=== PATIENT | female | born 1965 | race Caucasian/White ===

== ENCOUNTER 2017-02-07 16:25 | Emergency (ER) | payer OTHER ==
[~2017-02-07] VITALS: Ht 162.6 cm; Wt 81.8 kg
[~2017-02-07 16:25] MED LIST: ASPI81TA3 PO; INSLIS SUBQ; INSU100V7 SUBQ; LEVO100T6 PO; METF500T4 PO; SIMV40TA5 PO
[2017-02-07 16:31] VITALS: BP 156/84; PULSE 86; RESP 18; O2SAT 98
[2017-02-07] MEDS ORDERED: 0.9% Sodium Chloride 1,000 ML IV ONE (16:49)
--- NOTE | 2017-02-07 16:54 | ED.REPORT ---
HPI-Abd Pain F 40 and Over Date of Service Feb 07, 2017 ED Provider: Nahomi Jordan MD Pt is a 51 year old female with a hx of DM presenting to the ED from complaining of sudden onset constant/ waxing and waning left flank pain, hematuria, and diaphoresis onset at 1030 this morning. Pt denies any previous similar symptoms. She reports that her blood sugar was 325 so she took 100 of Lantus which she takes daily. Denies fever, chills, nausea, vomiting, SOB or wheezing. Nursing Notes Stated Complaint: LEFT FLANK PAIN Chief Complaint: Female Abdominal Pain Nursing Notes Reviewed: Yes Allergies: Coded Allergies: hydrocodone (Verified Allergy, Intermediate, Nausea,Vomiting, 02/07/17) latex (Verified Allergy, Mild, Rash, 02/07/17) Scheduled Aspirin Chew (Aspirin Chew) 81 Mg Chew 81 MG PO DAILY Ciprofloxacin (Ciprofloxacin) 500 Mg Tablet 500 MG PO BID Insulin Glargine (Lantus U100 Insulin Vial) 100 Unit/Ml Vial 100 UNIT SUBQ DAILY Levothyroxine (Levothyroxine) 100 Mcg Tablet 100 MCG PO DAILY Metformin (Metformin) 500 Mg Tablet 1,000 MG PO DAILY Simvastatin (Simvastatin) 40 Mg Tablet 40 MG PO HS Tamsulosin (Flomax) 0.4 Mg Capsule 0.4 MG PO DAILY Scheduled PRN Ondansetron ODT (Zofran ODT) 4 Mg Tablet 4 MG PO Q4H PRN PRN For Nausea oxyCODONE-Acetaminophen 5-325 mg (oxyCODONE-Acetaminophen 5-325 mg) 1 Each Tablet 1-2 TAB PO Q6H PRN PRN For Pain Miscellaneous Medications Insulin Human Lispro (HumaLOG U100 Insulin Vial) 100 Unit/Ml Unit 0 SUBQ Check blood sugars before meals and at bedtime. Use correction factor only before meals. Blood Sugar Lispro Correction: <151, 0 units; 151-175, 1 unit; 176-200, 2 units; 201-225, 3 units; 226-250, 4 units; 251-275, 5 units; 276-300 , 6 units; 301-325, 7 units; 326-350, 8 units; 351-375, 9 units; 376-400, 10 units; >400, 12 units. General Time Seen by MD: 16:38 Chief Complaint Flank pain left Hx Obtained From: Patient Arrived By: Walk-in Sudden in Onset?: Yes Onset Occurred: 5 - 8 hours ago Symptom Duration: Since onset Progression since Onset: Waxes and wanes Location: : Flank left Quality: Painful Severity: Current: Moderate Severity: Maximum: Severe Recent Healthcare: No recent hospitalization, Recent doctor visit Similar Sx Previous: No Past Medical History Past Medical History Reports: Diabetes mellitus Past Surgical History denies Smoking History Never Smoker Ambulatory Status Independent Review of Systems Constitutional: Denies: Chills, Fever Respiratory: Denies: Shortness of breath, Wheezing GI: Denies: Nausea, Vomiting Female: Reports: Flank pain, Hematuria Complete sys rev & neg: except as marked. Skin: Reports Diaphoresis Physical Exam Vital Signs Vital Signs (First) Date Time Temp Pulse Resp B/P Pulse Ox O2 Delivery O2 Flow Rate FiO2 02/07/17 16:31 36.4 86 18 156/84 98 Room Air Initial VS: Reviewed Head / Eyes: Atraumatic, Normocephalic, PERRL ENT: Mucous membranes moist, Conjunctiva normal, No scleral icterus Extremities: Vascular intact, Neuro intact, No swelling, No tenderness Skin: Warm, Dry, No cyanosis Neurologic: Alert, Oriented, Nonfocal Psychiatric: Mood/affect normal, Behavior normal, Normal thought content General/Constitutional: Awake, Alert Appears in pain Respiratory / Chest: Breath sounds NL, Breath sounds = bilat, No respiratory distress, No rales, No rhonchi, No wheezing, No stridor Cardiovascular: Heart rate NL, Regular rhythm, Heart sounds NL, Peripheral circulation NL Abdomen: Atraumatic, Soft, Non-tender Back: Atraumatic Left CVA tenderness Interpretation & Diagnostics Lab Results Interpretation Result Diagram: 02/07/17 1645 02/07/17 1645 Test 02/07/17 16:45 02/07/17 17:31 02/07/17 18:07 White Blood Count 18.9th/mm3 (3.8-10.1) Red Blood Count 4.65mil/mm3 (3.90-5.20) Hemoglobin 14.6g/dL (12.0-15.6) Hematocrit 41.3% (35.0-46.0) Mean Corpuscular Volume 88.8fL (81-100) Mean Corpuscular Hemoglobin 31.4pg (27.0-35.0) Mean Corpuscular Hemoglobin Concent 35.4% (32.0-37.0) Red Cell Distribution Width 12.4% (12.3-15.4) Platelet Count 334bil/L (150-400) Neutrophils (%) (Auto) 74.1% (40-74) Lymphocytes (%) (Auto) 18.3% (14-46) Monocytes (%) (Auto) 5.9% (4-12) Eosinophils (%) (Auto) 1.0% (0-5) Basophils (%) (Auto) 0.4% (0-3) Sodium Level 134mEq/L (134-144) Potassium Level 3.9mEq/L (3.5-5.2) Chloride Level 96mEq/L (97-108) Carbon Dioxide Level 21mmol/L (18-29) Blood Urea Nitrogen 14mg/dL (6-24) Creatinine 0.76mg/dL (0.57-1.00) Estimat Glomerular Filtration Rate 114mL/min (>59) Glucose Level 159mg/dL (60-99) Calcium Level 9.7mg/dL (8.5-10.1) Total Bilirubin 0.4mg/dL (0.0-1.2) Aspartate Amino Transf (AST/SGOT) 23U/L (0-50) Alanine Aminotransferase (ALT/SGPT) 26U/L (0-32) Alkaline Phosphatase 85U/L (25-150) Total Protein 8.1g/dL (6.4-8.4) Albumin 4.6g/dL (3.4-5.0) Hold [place] Top Tube Received (Received) Urine Color Bloody (YELLOW) Urine Appearance Turbid (CLEAR,HAZY) Urine pH 5.0 (5.0-8.0) Urine Specific [place] 1.032 (1.003-1.035) Urine Protein 100mg/dL (NEG,TRACE) Urine Glucose (UA) 250mg/dL (NEGATIVE) Urine Ketones Tracemg/dL (NEGATIVE) Urine Occult Blood Large (NEGATIVE) Urine Nitrite Negative (NEGATIVE) Urine Bilirubin Negative (NEGATIVE) Urine Urobilinogen Normalmg/dL (NORMAL) Urine Leukocyte Esterase Negative (NEGATIVE) Urine RBC >50/hpf (0-2) Urine WBC 6-10/hpf (0-5) Urine Epithelial Cells Occasional/hpf (NONE-MOD) Urine Crystals None seen (NONE SEEN) Urine Bacteria Few/hpf (NONE-FEW) Urine Hyaline Casts None/lpf (NONE) Urine Granular Casts None seen (NONE SEEN) Urine Waxy Casts None seen (NONE SEEN) Urine Red Blood Cell Casts None seen (NONE SEEN) Urine White Blood Cell Casts None seen (NONE SEEN) Urine Mucus None seen (None Seen) Urine Trichomonas None seen (NONE SEEN) Urine Yeast None (NONE SEEN) Urinalysis Comment None Urine Culture Reflexed Indicated CT Abd / Pelvis Interpretation CT KUB: IMPRESSION: 1. 3 mm left UVJ stone causing moderate left-sided hydroureteronephrosis. 2. Bilateral nonobstructing renal cortical stones. 3. Colonic diverticulosis without evidence diverticulitis. 4. Hepatic steatosis. Dictated by: Susannah Adrian MD, PhD on 02/07/2017 at 17:09 Study type: Abdominal CT no contrast Interpretation / Wet Read by: Interpret - Radiologist Re-Eval/Medical Decision Med Decision/Clinical Course 51-year-old female presents the emergency department with flank pain. Found to have a 3 mm UVJ stone with moderate hydronephrosis. Given that she does have some signs of infection with white blood cells in her urine and some dysuria yesterday and elevated white blood cell count discussed patient's case with urology on-call, will see patient in clinic on Thursday recommended Flomax, antibiotic and urine culture. 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 Re-Evaluation/Progress #1: Time of Eval: 17:47 Patient Status: Condition improved Re-Evaluation/Progress Note: Informed the pt of her CT results and discussed plan for discharge. Re-Evaluation/Progress #2: Time of Eval: 19:30 Re-Evaluation/Progress Note: Pt feels improved in terms of pain, nausea and vomiting. She does endorse that she felt some frequency and urgency started this morning. No dysuria. Re-Evaluation/Progress #3: Time of Eval: 20:29 Patient Status: Condition improved Re-Evaluation/Progress Note: Pt continues to have good control of her pain and nausea. Discussed plan for discharge. Pt understands and agrees. Consultation : Referral / Consult Name: Guera Lin MD Consulted With: Urology Call Returned at: 20:17 Note: Asks for urine culture, abx, Flomax, and call the clinic on Thursday. Counseled Regarding: Diagnosis, Lab results, Need for follow-up, When/why to return to ED Discharge & Departure Primary Impression: Renal calculus Additional Impression: Hydronephrosis Hydronephrosis type: unspecified Qualified Code: N13.30 - Unspecified hydronephrosis Disposition: Home Discharge Condition All VS Reviewed: Yes Condition: Improved Patient Instructions: Kidney Stones (ED) Additional Instructions: Your CT scan showed that you have a 3 mm kidney stone on the left. This should pass on its own. Dr. Lin recommends that you start taking antibiotics and Flomax, and follow up in the clinic on Thursday. you can take ibuprofen and percocet for pain. Return to the ER for fever, vomiting, increased pain, or other signs of infection. Referrals: Doug Song PA-C (PCP) Guera Lin MD Attestation Portions of this note were transcribed by Kristan Chamberlain. I, Dr. Jordan personally performed the history, physical exam and medical decision-making; I reviewed and confirmed the accuracy of the information in the transcribed note. Signed by: Misti Masters, 02/07/2017. copies to: Doug Song PA-C; Guera Lin MD, Sarah C MD Feb 07, 2017 16:54 KRISTAN CHAMBERLAIN Feb 07, 2017 16:59
[2017-02-07] MEDS ORDERED: Ondansetron 2 mg/mL 2 mL Inj ONE (17:01)
[2017-02-07] MEDS ORDERED: Ondansetron 2 mg/mL 2 mL Inj IVPUSH ONE (17:05)
[2017-02-07 17:12] LABS: BASOPHILS % (AUTO) 0.4 % (0-3); MONOCYTES % (AUTO) 5.9 % (4-12); Mean Corpuscular Hemoglobin 31.4 pg (27.0-35.0); Mean Corpuscular Volume 88.8 fL (81-100); NEUTROPHILS % (AUTO) 74.1 % (40-74); Platelet Count 334 bil/L (150-400)
--- NOTE | 2017-02-07 17:15 | DRSVH ---
PROCEDURE: CT KUB ([id number]) INDICATIONS: left flank pain TECHNIQUE: Noncontrast 5 mm thick sections acquired from the diaphragms to the symphysis. 5 mm thick coronal an d sagittal reformats were then performed. For radiation dose reduction, the following was used: aut omated exposure control, adjustment of mA and/or kV according to patient size. COMPARISON: None. FINDINGS: Image quality: Excellent. Lung bases: Lung bases are clear. Heart size is normal. Urinary system: Both kidneys are normal in size. 3 mm stone is noted in the left UVJ causing modera te left-sided hydroureteronephrosis. Cluster of stones is noted in the inferior pole of the left kid rema with largest stone measuring 6 mm in diameter. There is a 3 mm in diameter stone adjacent to the largest stone. 2 small proximally 1 mm in diameter stones are noted in the inferior pole of the lef t kidney And millimeter nonobstructing stone noted in the right kidney. No right-sided hydronephrosis. Bladd er wall thickness is normal; no calcified bladder stones. Other solid organs: Liver and spleen are normal in size. Diffuse fatty infiltration of the liver. Ga llbladder is within normal limits. Pancreas is normal in contours. No adrenal nodules. Peritoneum and bowel: Unenhanced bowel loops demonstrate normal wall thickness and caliber. Scattere d diverticuli noted in the colon without evidence of diverticulitis. No free fluid or air. The appen marlin is normal. Nodes and vessels: No retroperitoneal or mesenteric adenopathy by size criteria. Aorta and inferior vena cava are normal in caliber. Abdominal wall: Small fat containing umbilical hernia noted. Pelvis: No free pelvic fluid. No inguinal hernias or adenopathy. Presence of intrauterine device no nicol. Bones: No suspicious bony lesions. No vertebral body compression fractures. Spine degenerative dise ase and facet arthropathy noted. IMPRESSION: 1. 3 mm left UVJ stone causing moderate left-sided hydroureteronephrosis. 2. Bilateral nonobstructing renal cortical stones. 3. Colonic diverticulosis without evidence diverticulitis. 4. Hepatic steatosis. Dictated by: Susannah Adrian MD, PhD on 02/07/2017 at 17:09 Approved by: Susannah Adrian MD, PhD on 02/07/2017 at 17:13
[2017-02-07] MEDS ORDERED: Ketorolac 15 mg/mL Inj IVPUSH ONE (17:40)
[2017-02-07 17:46] VITALS: BP 135/78; PULSE 82; O2SAT 93
[2017-02-07 18:45] LABS: APPEARANCE,URINE TURBID (CLEAR,HAZY); COLOR,URINE BLOODY (YELLOW); OCCULT BLOOD,URINE LARGE (NEGATIVE); UROBILINOGEN,URINE NORMAL (NORMAL)
[2017-02-07] MEDS ORDERED: OXYC1TAB24 PO (20:35)
[2017-02-07] MEDS ORDERED: CIPR-198 PO (20:35)
[2017-02-07] MEDS ORDERED: TAMS0.4C98 PO (20:35)
[2017-02-07] MEDS ORDERED: ONDA4TAB9 PO (20:35)
[2017-02-07 20:37] VITALS: BP 111/83; PULSE 79; O2SAT 95
[2017-02-07 20:58] VITALS: BP 114/72; PULSE 77; RESP 16; O2SAT 96
== END 2017-02-07 20:56 | disposition home or self-care (01) ==
LOC: SED 16:25
DX: N20.0 Calculus of kidney (principal); N13.30 Unspecified hydronephrosis; E11.9 Type 2 diabetes mellitus without complications; Z79.84 Long term (current) use of oral hypoglycemic drugs; Z79.82 Long term (current) use of aspirin; Z79.4 Long term (current) use of insulin; Z88.5 Allergy status to narcotic agent; Z91.040 Latex allergy status
CPT/HCPCS: 36415; 74176; 80053; 81000; 82948; 85025; 87086; 96361; 96374; 96375; 99285; J1885; J2270; J2405; J7030